=== PATIENT | female | born 1950 | race Caucasian/White ===

== ENCOUNTER 2018-05-29 05:32 | Inpatient (IN) | payer MEDICARE, BC ==
[2018-05-29] MEDS ORDERED: CEFAZOLIN 2 GM/50 ML (PMX) 50 ML IVPB (06:00)
[2018-05-29] MEDS: LACTATED RINGER'S 1,000 ML (ENTER RATE) IV* (06:10)
[2018-05-29] MEDS ORDERED: POLYMYXIN/BACITRACIN 1L IRRIG (06:39)
[2018-05-29] MEDS ORDERED: HEPARIN 1000 UNITS/ML 10 ML INJ (06:39)
[2018-05-29] MEDS ORDERED: ROCURONIUM 50 MG INJ ×2 (07:00→07:04)
[2018-05-29] MEDS ORDERED: NEOSTIGMINE 3 MG/3 ML SYRINGE (07:04)
[2018-05-29] MEDS ORDERED: PROPOFOL 20 ML (07:04)
[2018-05-29] MEDS ORDERED: SUCCINYLCHOLINE CHLORIDE 100 MG/5 ML SYG IV (07:04)
[2018-05-29] MEDS ORDERED: LIDOCAINE 2% (SDV) 5 ML INJ (07:04)
[2018-05-29] MEDS ORDERED: GLYCOPYRROLATE 0.4 MG INJ (07:04)
[2018-05-29] MEDS ORDERED: MEPERIDINE 100 MG INJ (07:05)
[2018-05-29] MEDS ORDERED: CEFAZOLIN 1 GM INJ (07:23)
[2018-05-29] MEDS ORDERED: AL HYDROX/MG HYDROX/SIMETH 30 ML CUP PO (07:30)
[2018-05-29] MEDS ORDERED: CARISOPRODOL 350 MG TAB PO (07:30)
[2018-05-29] MEDS ORDERED: NALOXONE (0.4 MG/ML) INJ IV (07:30)
[2018-05-29] MEDS ORDERED: BISACODYL 10 MG SUPP PR (07:30)
[2018-05-29] MEDS ORDERED: ACETAMINOPHEN 325 MG TAB PO (07:30)
[2018-05-29] MEDS ORDERED: HYDROCODONE/APAP (10/325) TAB PO (07:30)
[2018-05-29] MEDS: POLYMYXIN/BACITRACIN 1L IRRIG IRR (08:10)
[2018-05-29] MEDS ORDERED: LABETALOL HCL 20MG INJ (08:10)
[2018-05-29] MEDS: THROMBIN 5000 UNIT VIAL (08:10)
[2018-05-29] MEDS: GELATIN SIZE 100 SPONGE (08:10)
[2018-05-29] MEDS: BUPIVACAINE 0.25%/EPI (SDV) 30 ML INJ (08:10)
[2018-05-29] MEDS: SURGIFOAM POWDER 1 GM KIT (08:10)
[2018-05-29] MEDS ORDERED: GELATIN SIZE 100 SPONGE (08:13)
[2018-05-29] MEDS ORDERED: METOCLOPRAMIDE 10 MG INJ (09:15)
[2018-05-29] MEDS ORDERED: ONDANSETRON 4 MG INJ (09:15)
[2018-05-29] MEDS ORDERED: MEPERIDINE 25 MG INJ IV (11:00)
[2018-05-29] MEDS ORDERED: FENTAnyl 50 MCG/ML VIAL IV ×2 (11:00)
[2018-05-29] MEDS ORDERED: ONDANSETRON 4 MG INJ IV (11:00)
[2018-05-29] MEDS ORDERED: MIDAZOLAM 1 MG/ML 2 ML INJ IV (11:00)
[2018-05-29] MEDS ORDERED: LABETALOL HCL 20MG INJ IV (11:00)
[2018-05-29] MEDS ORDERED: DIPHENHYDRAMINE 50 MG INJ IV (11:00)
[2018-05-29] MEDS ORDERED: EPHEDrine SULFATE 50 MG/5 ML SYG IV (11:00)
[2018-05-29] MEDS ORDERED: hydrALAzine 20 MG INJ IV (11:00)
[2018-05-29] MEDS ORDERED: HYDROmorphONE 1 MG/5 ML IV SYRINGE IV ×3 (11:00)
[2018-05-29] MEDS ORDERED: OXYCODONE/ACETAMINOPHEN (5/325) TAB PO ×2 (11:00)
[2018-05-29] MEDS ORDERED: METOCLOPRAMIDE 10 MG INJ IV (11:00)
[2018-05-29] MEDS: HYDROmorphONE 0.2 MG/ML PCA IV (11:06)
[2018-05-29] MEDS: FENTAnyl 50 MCG/ML VIAL IV (11:27)
[2018-05-29] MEDS: LORAZEPAM 2 MG INJ IV (13:08)
[2018-05-29] MEDS: D5W-0.45 NACL + KCL 20 MEQ 1,000 ML IV ×3 (13:17→23:15)
[2018-05-29] MEDS: CEFAZOLIN 1 GM/50 ML (PMX) 50 ML IVPB ×3 (15:30→23:14)
[2018-05-29] MEDS: ONDANSETRON 4 MG INJ IV (20:34)
[2018-05-29] MEDS: DOCUSATE SODIUM 100 MG CAP PO ×2 (20:35)
[2018-05-29] MEDS: MONTELUKAST 10 MG TAB PO (20:36)
[2018-05-30] MEDS: HYDROmorphONE 0.2 MG/ML PCA IV (03:15)
[2018-05-30 05:24] LABS: ADD MAN DIFF? NO
[2018-05-30] MEDS: LEVOTHYROXINE 150 MCG TAB PO (05:28)
[2018-05-30 05:30] LABS: WHITE BLOOD COUNT 9.9 10^3/ul (4.8-10.8)
[2018-05-30 05:30] LABS: BASOPHILS % 0.3 % (0.0-2.0); EOSINOPHILS # 0.1 10^3/ul (0.0-0.5); EOSINOPHILS % 0.6 % (0.0-7.0); HEMATOCRIT 37.9 % (37.0-47.0); HEMOGLOBIN 12.1 g/dl (12.0-16.0); LYMPHOCYTES # 1.7 10^3/ul (0.8-2.9); LYMPHOCYTES % 17.4 % (15.0-51.0); MEAN CORPUSCULAR HGB CONC 31.9 g/dl (32.0-37.0); MEAN CORPUSCULAR VOLUME 97.2 fl (82.0-101.0); MEAN PLATELET VOLUME 11.1 fl (7.4-10.4); MONOCYTE # 0.9 10^3/ul (0.3-0.9); MONOCYTES % 9.4 % (0.0-11.0); NEUTROPHIL # 7.1 10^3/ul (1.6-7.5); NEUTROPHILS % 71.8 % (39.0-77.0); PLATELET COUNT 201 10^3/UL (140-415); RED CELL DISTRIBUTION WIDTH 12.9 % (11.5-14.5)
[2018-05-30 05:50] LABS: ANION GAP 11 (8-16); BLOOD UREA NITROGEN 14 mg/dl (7-20); CALCIUM 8.3 mg/dl (8.4-10.2); CARBON DIOXIDE 27 mmol/L (21-31); CHLORIDE 106 mmol/L (97-110); CREATININE 0.79 mg/dl (0.44-1.00); GLUCOSE 137 mg/dl (70-220); MAGNESIUM 1.9 mg/dl (1.7-2.5); POTASSIUM 4.5 mmol/L (3.5-5.1); SODIUM 139 mmol/L (135-144)
[2018-05-30] MEDS ORDERED: PANTOPRAZOLE 40 MG INJ IV (06:00)
[2018-05-30] MEDS: PANTOPRAZOLE (EC) 40 MG TAB PO (08:39)
[2018-05-30] MEDS: DOCUSATE SODIUM 100 MG CAP PO ×2 (08:39→21:00)
[2018-05-30] MEDS ORDERED: [UNRECOGNIZED DRUG - OTHER] PO (09:00)
[2018-05-30] MEDS: DIPHENHYDRAMINE 50 MG INJ IV ×2 (10:35→20:04)
[2018-05-30] MEDS: D5W-0.45 NACL + KCL 20 MEQ 1,000 ML IV ×2 (11:11→23:12)
[2018-05-30] MEDS: HYDROCODONE/APAP (10/325) TAB PO ×2 (12:47→13:34)
[2018-05-30] MEDS: CEPASTAT LOZENGE MT (12:54)
[2018-05-30] MEDS: HYDROmorphONE 0.5 MG/0.5 ML SYG IV ×2 (15:00→19:34)
[2018-05-30] MEDS: ONDANSETRON 4 MG INJ IV (17:17)
[2018-05-30] MEDS ORDERED: OXYCODONE/ACETAMINOPHEN (10/325) TAB PO (19:30)
[2018-05-30] MEDS: MONTELUKAST 10 MG TAB PO (21:00)
[2018-05-30] MEDS: OXYCODONE/ACETAMINOPHEN (10/325) TAB PO (21:11)
[2018-05-31] MEDS: HYDROmorphONE 0.5 MG/0.5 ML SYG IV ×5 (02:19→18:56)
[2018-05-31] MEDS: OXYCODONE/ACETAMINOPHEN (10/325) TAB PO ×4 (03:20→23:50)
[2018-05-31] MEDS: D5W-0.45 NACL + KCL 20 MEQ 1,000 ML IV ×2 (03:24→18:56)
[2018-05-31] MEDS: LEVOTHYROXINE 150 MCG TAB PO (06:00)
[2018-05-31] MEDS: DOCUSATE SODIUM 100 MG CAP PO (09:00)
[2018-05-31] MEDS: PANTOPRAZOLE (EC) 40 MG TAB PO (09:41)
[2018-05-31] MEDS: DIPHENHYDRAMINE 50 MG INJ IV (09:49)
[2018-05-31] MEDS: MONTELUKAST 10 MG TAB PO (21:00)
[2018-05-31] MEDS: DOCUSATE SODIUM 10 MG/ML (10ML CUP) PO (21:08)
[2018-05-31] MEDS: ALBUTEROL 0.083% (NEB) 2.5 MG/3 ML AMP HHN (22:53)
[2018-05-31] MEDS: METHYLPREDNISOLONE 125 MG INJ IV (23:06)
[2018-06-01] MEDS: OXYCODONE/ACETAMINOPHEN (10/325) TAB PO ×3 (06:04→19:22)
[2018-06-01] MEDS: LEVOTHYROXINE 150 MCG TAB PO (06:04)
[2018-06-01] MEDS: PANTOPRAZOLE (EC) 40 MG TAB PO (06:04)
[2018-06-01] MEDS: D5W-0.45 NACL + KCL 20 MEQ 1,000 ML IV ×3 (06:05→22:14)
[2018-06-01] MEDS: DOCUSATE SODIUM 10 MG/ML (10ML CUP) PO (11:04)
[2018-06-01] MEDS: DIPHENHYDRAMINE 50 MG INJ IV (15:02)
[2018-06-01] MEDS: DOCUSATE SODIUM 100 MG CAP PO (20:55)
[2018-06-01] MEDS: MONTELUKAST 10 MG TAB PO (21:00)
[2018-06-01] MEDS: HYDROmorphONE 0.5 MG/0.5 ML SYG IV (23:04)
[2018-06-01] MEDS: ONDANSETRON 4 MG INJ IV (23:07)
[2018-06-02] MEDS: OXYCODONE/ACETAMINOPHEN (10/325) TAB PO ×3 (01:53→14:20)
[2018-06-02] MEDS: DIPHENHYDRAMINE 25 MG CAP PO (02:03)
[2018-06-02] MEDS: PANTOPRAZOLE (EC) 40 MG TAB PO (06:51)
[2018-06-02] MEDS: HYDROmorphONE 0.5 MG/0.5 ML SYG IV ×2 (06:51→11:27)
[2018-06-02] MEDS: LEVOTHYROXINE 150 MCG TAB PO (06:51)
[2018-06-02] MEDS: DOCUSATE SODIUM 100 MG CAP PO (08:33)
[2018-06-02] MEDS: D5W-0.45 NACL + KCL 20 MEQ 1,000 ML IV (11:12)
[2018-06-02] MEDS ORDERED: HYDROmorphONE 2 MG TAB PO (12:00)
== END 2018-06-02 18:00 | disposition home or self-care (01) | DRG 473 ==
LOC: REC 05:32 → MS1 12:15
PROC: 0RG20A0 Fusion of 2 or more Cervical Vertebral Joints with Interbody Fusion Device, Anterior Approach, Anterior Column, Open Approach (ICD-10-PCS; principal; 2018-05-29 07:00)
PROC: 0RT30ZZ Resection of Cervical Vertebral Disc, Open Approach (ICD-10-PCS; 2018-05-29 07:00)
PROC: 4A11X4G Monitoring of Peripheral Nervous Electrical Activity, Intraoperative, External Approach (ICD-10-PCS; 2018-05-29 07:00)
DX: M50.121 Cervical disc disorder at C4-C5 level with radiculopathy (principal); Z68.30 Body mass index [BMI] 30.0-30.9, adult; M48.02 Spinal stenosis, cervical region; R09.02 Hypoxemia; E78.5 Hyperlipidemia, unspecified; E66.9 Obesity, unspecified; E03.9 Hypothyroidism, unspecified; J45.20 Mild intermittent asthma, uncomplicated; R13.10 Dysphagia, unspecified
CPT/HCPCS: 72040; 80048; 83735; 85025; 87086; 88304; 94640; 94664; 97110; 97116; 97163; 97530